=== PATIENT | female | born 1975 | race Caucasian/White ===

== ENCOUNTER 2019-06-02 17:10 | Emergency (ER) | payer MEDICAID, MEDICARE ==
[~2019-06-02] VITALS: Ht 170.2 cm; Wt 65.8 kg
[2019-06-02 17:10] VITALS: BP_SYST 104
[2019-06-02] MEDS ORDERED: DEXAMETHASONE SOD PHOSPHATE 10 MG/ML VIAL IM ONE (17:45)
[2019-06-02 18:04] VITALS: BP_SYST 114
== END 2019-06-02 18:04 | disposition home or self-care (01) ==
LOC: SED 17:10
DX: J03.90 Acute tonsillitis, unspecified (principal); I10 Essential (primary) hypertension; Z88.2 Allergy status to sulfonamides
CPT/HCPCS: 96372; 99283; J1100

== ENCOUNTER 2019-09-08 18:18 | Emergency (ER) | payer MEDICAID ==
[~2019-09-08] VITALS: Ht 170.2 cm; Wt 63.5 kg
[2019-09-08 18:20] VITALS: BP_SYST 109
--- NOTE | 2019-09-08 18:20 | NUR ---
Patient triaged and placed in waiting room. VSS and patient appears in no acute distress at this time. Accompanied by SELF, awaiting available bed, and MD notified of need for MSE.
--- NOTE | 2019-09-08 20:11 | NUR ---
Patient to ER chair to [email or web address] for evaluation. Side rails up. Report given to Zoran ALMODOVAR.
--- NOTE | 2019-09-08 20:20 | NUR ---
PT LEFT WITHOUT BEING SEEN
== END 2019-09-08 20:20 | disposition left against medical advice (07) ==
LOC: SED 18:18
DX: R07.0 Pain in throat (principal); Z53.21 Procedure and treatment not carried out due to patient leaving prior to being seen by health care provider

== ENCOUNTER 2024-04-10 18:39 | Emergency (ER) | payer MEDICAID ==
[~2024-04-10] VITALS: Ht 167.6 cm; Wt 68.5 kg
[2024-04-10 18:40] VITALS: BP_SYST 103; PULSE 80; RESP 16; TEMP 98.1; O2SAT 98
[2024-04-10 19:52] LABS: BASOPHILS # (AUTO) 0.1 K/uL (0.0-0.2); BASOPHILS % (AUTO) 1.3 % (0.0-2.0); EOSINOPHILS # (AUTO) 0.1 K/uL (0.0-0.4); EOSINOPHILS % (AUTO) 1.1 % (0.0-4.0); HEMATOCRIT 41.1 % (36-48); HEMOGLOBIN 14.2 g/dL (12.0-16.0); LYMPHOCYTES # (AUTO) 2.6 K/uL (1.0-5.5); LYMPHOCYTES % (AUTO) 28.9 % (20.5-51.5); MEAN CORPUSCULAR HEMOGLOBIN 32 pg (27-31); MEAN CORPUSCULAR HGB CONC 35 % (32-36); MEAN CORPUSCULAR VOLUME 94 fL (79.0-98.0); MONOCYTES # (AUTO) 0.7 K/uL (0.0-1.0); MONOCYTES % (AUTO) 7.9 % (1.7-9.3); NEUTROPHILS # (AUTO) 5.5 K/uL (1.8-7.7); NEUTROPHILS % (AUTO) 60.8 % (40.0-70.0); PLATELET COUNT (AUTO) 265 K/uL (130-430); RED BLOOD CELL COUNT(AUTO) 4.38 MIL/uL (4.2-6.2); RED CELL DISTRIBUTION WIDTH 14.1 % (9.0-15.0)
[2024-04-10 20:04] VITALS: O2SAT 97
[2024-04-10 20:07] LABS: CALCIUM 9.1 mg/dL (8.4-11.0); CREATININE 0.8 mg/dL (0.55-1.30); POTASSIUM 3.8 mmol/L (3.5-5.1)
[2024-04-10] MEDS ORDERED: MOME17SP15 NAS (20:31)
[2024-04-10] MEDS ORDERED: CEFU250T85 PO (20:31)
[2024-04-10] MEDS ORDERED: PRED20TA PO (20:31)
[2024-04-10 20:44] VITALS: BP_SYST 104; PULSE 75; RESP 18; TEMP 97.7
== END 2024-04-10 20:42 | disposition home or self-care (01) ==
LOC: SED 18:39
DX: J40 Bronchitis, not specified as acute or chronic (principal); R50.9 Fever, unspecified; I10 Essential (primary) hypertension; Z88.0 Allergy status to penicillin; Z88.2 Allergy status to sulfonamides; Z79.899 Other long term (current) drug therapy; Z79.2 Long term (current) use of antibiotics
CPT/HCPCS: 36415; 80048; 85025; 86308; 99283